=== PATIENT | male | born 2000 | race Caucasian/White ===

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

== ENCOUNTER 2023-06-16 16:59 | Emergency (ER) | payer BC, SELFPAY ==
[2023-06-16 16:59] VITALS: BP 130/85; PULSE 102; RESP 18; TEMP 36.6; O2SAT 100; BMI 24.1
[2023-06-16 17:21] VITALS: BP 124/64; PULSE 66; RESP 16; TEMP 36.6
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
[2023-06-16 19:00] VITALS: BP 138/77; PULSE 87; RESP 18; TEMP 36.6; O2SAT 98
== END 2023-06-16 20:49 | disposition home or self-care (01) ==
PROVIDERS: Emergency Provider Emergency Medicine; PCP Pediatrics; Visit Provider Emergency Medicine
DX: S62.001A Unspecified fracture of navicular [scaphoid] bone of right wrist, initial encounter for closed fracture (principal); V20.49XA Other motorcycle driver injured in collision with pedestrian or animal in traffic accident, initial encounter; Y92.410 Unspecified street and highway as the place of occurrence of the external cause; S20.412A Abrasion of left back wall of thorax, initial encounter; S60.511A Abrasion of right hand, initial encounter; S40.812A Abrasion of left upper arm, initial encounter; S70.312A Abrasion, left thigh, initial encounter; S80.212A Abrasion, left knee, initial encounter
CPT/HCPCS: 29125; 73110; 99282